=== PATIENT | female | born 1950 | race Caucasian/White ===

== ENCOUNTER → 2019-02-24 13:45 | Outpatient (CLI) | payer MEDICARE ==
[2016-01-22 14:11] VITALS: BMI 35.8
[~2019-02-24 13:45] MED LIST: AMBIEN10 MG PO; AVALIDE 300-12.1 TA1 PO; COREG25 MG PO; CRESTOR20 MG PO; EFFIENT PO; EFFIENT10 MG PO; HYDROCODONE-APA1 TAB PO; LYRICA75 MG PO; PROTONIX40 MG PO; ULTRAM50 MG PO
--- NOTE | 2019-03-01 13:02 | EC ---
PATIENT:RASHID VALDOVINOS DATE OF SERVICE: 02/24/19 SEX: F MEDICAL RECORD: [id number] DATE OF : [birth year] LOCATION:[facility] AGE OF PATIENT: 68 ADMISSION DATE: 02/24/19 REFERRING PHYSICIAN: INTERPRETING PHYSICIAN: JASBIR CORONA MD ECHOCARDIOGRAM REPORT ECHO CHARGES 4 ECHO COMPLETE Date: 02/24/19 CLINICAL DIAGNOSIS: PVC'S H/O CAD/HTN ECHOCARDIOGRAPHIC MEASUREMENTS (adult normal given) AC root (d.<3.7cm) 3.0 cm LV Septum d (<1.2 cm> 1.3 cm Valve Excursion 2.1 cm LV Septum (systole) 1.8 cm Left Atria (s.<4.0cm> 4.6 cm LVPW d(<1.2cm) 1.4 cm RV (d.<2.3cm) 2.6 cm LVPW (sytole) 2.1 cm LV diastole(<5.6CM) 4.7 cm MV E-F(>70mm/sec) cm LV systole 2.5 cm LVOT Diameter 1.9 cm MV exc.(>10mm) cm Est.ejection fraction (50-75%) % DOPPLER: LVIT cm/sec A 111 cm/sec E 94.0 cm/sec LA cm/sec RVSP 47.0 mmHg LVOT 92.0 cm/sec AOP1/2T m/s Asc. Ao 141 cm/sec RVOT 59.0 cm/sec RA cm/sec PA 104 cm/sec AV Gradient Peak 7.9 mmHg AV Mean 3.7 mmHg AV Area 2.0 cm MV Gradient Peak 5.3 mmHg MV Mean 2.1 mmHg MV Area cm COMMENTS: OP - HC Facilities Mechanical Design Engineer: Natalie PEREAOE Piecer: 3 Dr. Mayes TAPE# PACS Pericardial Effusion N DATE OF SERVICE: Adequate 2D, color flow, spectral Doppler, and M-Mode. Borderline LVH. LV internal dimension is normal. Wall motion is normal. EF is greater than or equal to 55%. Aortic valve sclerosis without evidence of stenosis on Doppler interrogation. Left atrium is normal. Mitral valve shows no prolapse. Trace MR. Right-sided chambers grossly normal. Trace TR. TRANSINT:[id number] Voice Confirmation ID: [id number] DOCUMENT ID: [id number] ECHOCARDIOGRAM REPORT [id number] MOGA,RASHID JASBIR CORONA MD at 1302 CC: [id number] DICTATION DATE: 02/26/19 0839 DRESSING MACHINE OPERATOR: 02/26/19 1101 DEP CLI 02/24/19 [facility] [address] [place] [address]
== END | disposition home or self-care (01) ==
LOC: D.HCCARDIO 02-18 11:00
PROVIDERS: ATTEND Internal Medicine Interventional Cardiology
DX: I25.10 Atherosclerotic heart disease of native coronary artery without angina pectoris (principal)